=== PATIENT | female | born 1980 | race Caucasian/White ===

== ENCOUNTER 2018-10-08 03:40 | Emergency (ER) | payer BC ==
[~2018-10-08] VITALS: Ht 182.9 cm; Wt 122.5 kg
[2018-10-08] MEDS ORDERED: HYDROCODONE/APAP 5-325MG TABLET ONE ×2 (03:59→04:34)
[2018-10-08] MEDS ORDERED: HYDROCODONE/APAP 5-325MG TABLET PO ONE ×2 (04:00→04:45)
--- NOTE | 2018-10-08 04:03 | NUR ---
Pt. ambulated into ED w/ c/o 03/28 pain to R thumb from "a stool falling on her after having too much to drink",
--- NOTE | 2018-10-08 04:13 | NUR ---
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
--- NOTE | 2018-10-08 04:34 | NUR ---
Patient discharged to home in stable conditon. Written and verbal after care instructions given. Patient verbalizes understanding of instructions. Pt. d/c w/ prescription per Dr. Tavarez orders, left in [employer], instructed not to drive, left w/ all belongings,
== END 2018-10-08 04:38 | disposition home or self-care (01) ==
LOC: ER 03:46
DX: S62.521A Displaced fracture of distal phalanx of right thumb, initial encounter for closed fracture (principal); S60.011A Contusion of right thumb without damage to nail, initial encounter; W20.8XXA Other cause of strike by thrown, projected or falling object, initial encounter; Y93.89 Activity, other specified; Y92.89 Other specified places as the place of occurrence of the external cause; Y99.8 Other external cause status
CPT/HCPCS: 73140; A4663